=== PATIENT | male | born 1990 | race Caucasian/White ===

== ENCOUNTER 2024-01-12 17:57 | Inpatient (IN) | payer BC, MEDICAID ==
[2024-01-12] MEDS ORDERED: OLANZapine 10 MG VIAL IM PRN (20:43)
[2024-01-12] MEDS ORDERED: IBUPROFEN 600 MG TAB PO PRN (20:43)
[2024-01-12] MEDS ORDERED: ACETAMINOPHEN TAB 325 MG TAB PO PRN (20:43)
[2024-01-12] MEDS ORDERED: LORazepam 2 MG/ML INJ IM PRN (20:47)
[2024-01-12] MEDS: LORazepam 1 MG TAB PO PRN (22:50)
[2024-01-13] MEDS: NICOTINE 14MG/24HR PATCH TRANSDERM SCH (08:09)
[2024-01-13 09:37] LABS: Chol/HDL Ratio 3.32 Ratio; LDL Cholesterol,Calculated 75.2 mg/dL (0.0-131.0); VLDL Calculation 11.42 mg/dL (5.00-40.00)
--- NOTE | 2024-01-13 11:45 | P.HP ---
Psychiatric H&P - . H&P Date: 01/13/24 History & Physical: Allergies Allergy/AdvReac Type Severity Reaction Status Date / Time cephalexin monohydrate Allergy Unknown Verified 01/13/24 06:25 [From Keflex] Vital Signs Temp 97.6 F 01/13/24 06:11 Pulse 99 01/13/24 06:11 Resp 20 01/13/24 06:11 BP 117/79 01/13/24 06:11 Pulse Ox 100 01/13/24 06:11 FiO2 Intake & Output 01/12/24 01/13/24 01/13/24 18:59 06:59 18:59 Weight 76 kg Laboratory Last Values Estimated Ave Glu mg/dL 108 mg/dL 01/13/24 05:50 Hemoglobin A1c 5.4 % (<=6.0) 01/13/24 05:50 Triglycerides 57.10 mg/dL (0.00-149.00) 01/13/24 05:50 Cholesterol 124.00 mg/dL (0.00-200.00) 01/13/24 05:50 LDL Cholesterol, Calc 75.2 mg/dL (0.0-131.0) 01/13/24 05:50 VLDL Cholesterol, Calc 11.42 mg/dL (5.00-40.00) 01/13/24 05:50 HDL Cholesterol 37.40 mg/dL (40.00-60.00) L 01/13/24 05:50 Cholesterol/HDL Ratio 3.32 Ratio 01/13/24 05:50 01/13/24 11:38 This is a psychiatric assessment on Chema Vang who is a 33-year-old male and who states that he currently works as a behavioral health worker Patient reports that he was brought to the hospital because he was yelling at one of his patients who was not behaving right Patient also was writing voraciously and states that his writing about or 4 fathers whom he states that related to [place] He states that he used to roam around the world and was involved in several battles and that he is part of the group of the fore fathers When asked about any history of any mental illness patient denies any such problems He states his never been treated for any mental disorder Patient also did not seem to be surprised when asked about any history of bipolar disorder in the family When asked about taking any medications patient wanted to know all about the side effects and monitoring of the mechanism of action etc. and continued to ask multiple questions and concerns about medications Patient was reassured that he does not have to take them if he does not want to but that this is something we can offer to him for his condition Patient seemed to be relieved and went back to riding his so-called novel Patient continued to offer if I wanted to read his novel He states that he currently lives alone He denies any alcohol or substance use He denies any previous psychiatric hospitalizations or treatments Past history personal social history Patient is difficult to redirect and at this time continues to ramble about his normal and about [place]enstein He is unable to be distracted from his current preoccupation and will attempt to get further information when patient is able to participate more adequately or any collateral information is available from other sources Mental status examination: OBJECTIVE: speech was appropriate -The conversation is disorganized and controlled by the patient with the going in different directions -Patient is very preoccupied with his story writing and about Frankenstein patient remains in denial about his illness and the need for treatment -Fund of general knowledge is probably average. -pts MOOD IS blunted -pts judgement and insight are impaired patient continues to rationalize and intellectualize Mental Status Exam Behavior: cooperative, no signs of agitation or aggression Speech: fluent, clear, loud volume hyperverbal Perception: cannot be clearly determine if patient is experiencing any auditory or visual hallucinations Cognition: alert, oriented to place, oriented to person, memory impaired , poor concentrating ability, poor attention span Intelligence: average Memory: remote, recent impaired Mood: Blunted Insight: poor Judgment: poor Thought Processes: disorganized Thought Content: projective rationalizing intellectualizing delusional and projective Diagnostic impression: Psychotic disorder acute Rule out bipolar disorder manic type Suicide risk assessment: 1 emotional and physical pain: low 2 withdrawal/inability to talk about feelings/lack of participation: low 3 current stress/losses/difficult life situation: low 4 hopelessness/inability to think of the future that could be bright: low 5 history of self harm, especially in the hospital/healthcare facilities: low 6 access to firearms: denied 7 current depressive hypomanic or manic episodes: Acute psychosis 8 current thoughts of suicide, intent or plan: low protective factors: estimated suicide risk : low "This dictation was prepared using [employer] voice recognition software. As a result, errors may occur. When identified, these errors have been corrected. While every attempt is made to correct errors during dictation, errors may still exist." I have spent more than 35 minutes with patient doing preparation for encounter, history, physical exam, interpretation of results, reviewing images myself, and coordination of care. Please see assessment and plan above regarding details. Admission recommendations: The patient has been hospitalized on the unit for further evaluation and treatment Therapy will be focused on providing supportive care and improving his coping abilities with a multimodal treatment Patient will also participate on the ghotra activities Individual milieu group OT RT PT and pharmacotherapy director of consulting services on board for appropriate follow-up and placement recommendations if needed The patient is unable to make a decision at this time regarding taking any medications Approximate length of stay would be 7 to 10 days Patient has denied any substance use problems about may be referred for substance use program including psychosocial support system like AA and NA for alcohol and substance use disorders if there is any problems related to substance use Shaq Parada MD
[2024-01-13] MEDS: MAG HYDROX/AL HYDROX/SIMETH 355 ML BOTTLE PO PRN (17:25)
[2024-01-13] MEDS: PANTOPRAZOLE 40 MG TABLET PO SCH (17:52)
[2024-01-14] MEDS: MELATONIN 5 MG TABLET PO PRN (01:25)
[2024-01-14] MEDS: OLANZapine 10 MG TAB PO PRN (01:56)
--- NOTE | 2024-01-14 08:41 | P.PN ---
Subjective 01/14/24 9:38 Subjective data: The patient was seen chart was reviewed and case discussed with nursing staff Patient was laying in bed was but was easily aroused He talked about wanting to show some of his writings We discussed that it would be helpful for him to go on a medication patient however states that the medication he took last night works the best and wanted to know more about it We discussed a trial of antipsychotic or a mood stabilizer patient however remains in denial and remains preoccupied Patient was advised to get some thought regarding med trial Mental status examination: OBJECTIVE: speech was appropriate -The conversation is disorganized -Patient is very preoccupied with his story writing and about [place]enstein and wanted to share his notes patient remains in denial about his illness and the need for treatment -Fund of general knowledge is probably average. -pts MOOD IS blunted -pts judgement and insight are impaired patient continues to rationalize and intellectualize Mental Status Exam Behavior: cooperative, no signs of agitation or aggression Speech: fluent, clear, loud volume hyperverbal Perception: cannot be clearly determine if patient is experiencing any auditory or visual hallucinations Cognition: alert, oriented to place, oriented to person, memory impaired , poor concentrating ability, poor attention span Intelligence: average Memory: remote, recent impaired Mood: Blunted Insight: poor Judgment: poor Thought Processes: disorganized Thought Content: projective rationalizing intellectualizing delusional and projective Diagnostic impression: Psychotic disorder acute Rule out bipolar disorder manic type Suicide risk assessment: 1 emotional and physical pain: low 2 withdrawal/inability to talk about feelings/lack of participation: low 3 current stress/losses/difficult life situation: low 4 hopelessness/inability to think of the future that could be bright: low 5 history of self harm, especially in the hospital/healthcare facilities: low 6 access to firearms: denied 7 current depressive hypomanic or manic episodes: Acute psychosis 8 current thoughts of suicide, intent or plan: low protective factors: estimated suicide risk : low "This dictation was prepared using [employer] voice recognition software. As a result, errors may occur. When identified, these errors have been corrected. While every attempt is made to correct errors during dictation, errors may still exist." I have spent more than 25 minutes with patient doing preparation for encounter, history, physical exam, interpretation of results, reviewing images myself, and coordination of care. Please see assessment and plan above regarding details. Admission recommendations: The patient has been hospitalized on the unit for further evaluation and treatment Therapy will be focused on providing supportive care and improving his coping abilities with a multimodal treatment Patient will also participate on the ghotra activities Individual milieu group OT RT PT and pharmacotherapy payroll services analyst on board for appropriate follow-up and placement recommendations if needed The patient is unable to make a decision at this time regarding taking any medications Approximate length of stay would be 7 to 10 days Patient has denied any substance use problems about may be referred for substance use program including psychosocial support system like AA and NA for alcohol and substance use disorders if there is any problems related to substance use Shaq Parada MD Objective - Vital Signs Vital signs: Vital Signs Temp 97.6 F 01/13/24 06:11 Pulse 99 01/13/24 06:11 Resp 20 01/13/24 06:11 BP 117/79 01/13/24 06:11 Pulse Ox 100 01/13/24 06:11 FiO2 - Labs Labs: Abnormal Lab Results - Last 24 Hours (Table) 01/13/24 Range/Units 05:50 HDL Cholesterol 37.40 L (40.00-60.00) mg/dL
[2024-01-14] MEDS: MAGNESIUM HYDROXIDE 2,400 MG/30 ML CUP PO PRN (11:22)
--- NOTE | 2024-01-15 00:27 | P.CONS ---
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 The patient was seen in our mental health unit. He denied any physical complaints at the time of interview. He reports recreational marijuana use and vaping. Denies any additional illicit substance use. Denied experiencing chest discomfort, shortness of breath, fever, chills, cough, nausea, vomiting, abdominal pain, diarrhea. Review of systems: Pertinent positives and negatives as discussed in HPI, a complete review of systems was performed and all other systems are negative. Physical examination: General: non toxic, no distress, appears at stated age, normal weight Derm: no unusual rashes/lesions, no unusual ecchymoses, warm, dry Head: atraumatic, normocephalic, symmetric Eyes: EOMI, no lid lag, anicteric sclera ENT: Nose and ears atraumatic, no thrush, no pharyngeal erythema Neck: trachea midline, supple Mouth: no lip lesion, mucus membranes moist Cardiovascular: S1S2 reg, no murmur, no edema Lungs: CTA bilateral, no rhonchi, no rales , no accessory muscle use Abdominal: soft, nontender to palpation, no guarding Ext: no gross muscle atrophy, no contractures, Neuro: No gross focal neuro deficits noted Psych: Alert, oriented, appropriate affect Assessment: Marijuana abuse Psychosis Plan: Advised on the importance of cessation Defer management of psychosis to primary psychiatry service for Thank you for allowing us to participate in the care of this patient. We will follow peripherally. Do not hesitate to contact us with questions. Someone can be reached from the [facility] [place] hospitalist group at all hours of the day at [phone]. Past Medical History Past Medical History: No Reported History Additional Past Medical History / Comment(s): numerous attempts with rehabs History of Any Multi-Drug Resistant Organisms: None Reported Past Surgical History: No Surgical Hx Reported Past Psychological History: Unable to Obtain Additional Psychological History / Comment(s): hx of three inpatient psycyhiatric admissions. Smoking Status: Former smoker Past Alcohol Use History: Daily Past Drug Use History: Marijuana Medications and Allergies Home Medications Medication Instructions Recorded Confirmed Type No Known Home Medications 01/13/24 01/13/24 History Allergies Allergy/AdvReac Type Severity Reaction Status Date / Time cephalexin monohydrate Allergy Unknown Verified 01/13/24 06:25 [From Keflex] Physical Exam Vitals: Intake and Output 01/14/24 01/14/24 01/15/24 14:59 22:59 06:59 Other: Weight 75.7 kg
--- NOTE | 2024-01-15 10:14 | P.PN ---
Progress Note - Text Progress Note Date: 01/15/24 Follow-up Mediation Review Chief Complaint: I was raising my voice. Subjective: The patient stated that he might be schizophrenic. 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 He stated that he was petitioned by the [facility] because he was raising his voice on a patient. The patient noted that he was engaging with mind, heart and soul but getting weird thoughts. He used the same process with the patient but did not do a good job. The patient is upset that he could not petition himself but was petitioned by the hospital against his will. The patient noted that he is ro to be here and did not get fired. The patient has been attending the groups. The participation is good. The interaction with staff and peers is good. The patient is compliant with treatment recommendations. Leading questions: The patient denied Depression and Anxiety. Denied SI or HI. Denied symptoms consistent with psychosis Sleep and Appetite: Sleep is impaired. Appetite is fine. Change in family/ living/job/financial/daily routine: No change. Change in medical condition: No change. Change in medications: No change. Side effects from Medications: None. Allergies: No change. Objective- MSE: Alert and attentive. Orientation times three. Dressed and Groomed: Appropriately. Pleasant and cooperative. Psychomotor Activity: Normal. Speech: Normal in tone, quality, hyperverbal Mood: Fine. Affect: Appropriate SI or HI: None. Perceptual disturbance: None. Thought Content: Mild grandiose and paranoid thinking noted. No other delusional thinking noted. Thought Process: Tangential, loose association, flight of ideas. Cognition: Intact Judgment and Insight: Poor. AIMS: Normal. Labs: No new labs. Diagnosis: Plan and Recommendations: Continue current Medications. Add Zyprexa 5 mg po Qhs. Monitor MS and side effects of medications and adjust medications accordingly. Provide supportive psychotherapy. The patient provided psychoeducation and advised The patient provided Substance abuse counseling. Smoke cessation therapy. The patient to attend ghotra activities. CBC with Diff, CMP, TSH. Medication Consent with explanation of risk/benefits and side effects: Explained and obtained.
[2024-01-15 10:54] LABS: ALT 17 U/L (4-49); AST 22 U/L (17-59); African American GFR (CKD) >90 (>60 ml/min/1.73 sqM); Albumin 4.5 g/dL (3.5-5.0); Alkaline Phosphatase 50 U/L (38-126); Anion Gap 9 mmol/L; Basophils % (A) 1 %; Blood Urea Nitrogen 14 mg/dL (9-20); Calcium 9.8 mg/dL (8.4-10.2); Carbon Dioxide 27 mmol/L (22-30); Chloride 103 mmol/L (98-107); Eosinophils # (A) 0.1 k/uL (0-0.7); Eosinophils % (A) 2 %; Glucose 87 mg/dL (74-99); HCT 42.8 % (39.0-53.0); HGB 14.6 gm/dL (13.0-17.5); Lymphocytes # (A) 0.9 k/uL (1.0-4.8); Lymphocytes % (A) 18 %; MCH 31.8 pg (25.0-35.0); MCHC 34.2 g/dL (31.0-37.0); MCV 93.1 fL (80.0-100.0); Mean Platelet Volume 7.4; Monocytes # (A) 0.4 k/uL (0-1.0); Monocytes % (A) 7 %; Neutrophils # (A) 3.5 k/uL (1.3-7.7); Neutrophils % (A) 69 %; Non-African American GFR(CKD) 88 (>60 ml/min/1.73 sqM); Platelet Count 305 k/uL (150-450); Potassium 4.5 mmol/L (3.5-5.1); RBC 4.59 m/uL (4.30-5.90); RDW 12.2 % (11.5-15.5); Sodium 139 mmol/L (137-145); Total Bilirubin 0.5 mg/dL (0.2-1.3); Total Protein 7.1 g/dL (6.3-8.2)
[2024-01-15] MEDS: OLANZapine 5 MG TAB PO SCH (20:26)
[2024-01-16 07:02] VITALS: TEMP 97.9
--- NOTE | 2024-01-16 14:16 | P.PN ---
Progress Note - Text Progress Note Date: 01/16/24 Follow-up Mediation Review Chief Complaint: I am taking my medications. Subjective: The patient stated that he is taking his prn medications. He only wants to take medications as needed. The patient was explained he must take some medications on a regular basis. He wants to take bedtime dose of Zyprexa as prn. The patient was explained this is his medication for psychosis and a has to be taken on a regular dose in the hospital and outside the hospital as an out-pt to prevent reoccurrence of his illness. The patient agreed. He was explained the dose needs to be increased for adequate control of his psychosis. The patient understood and agreed. Zyprexa to be increased to 10 mg po hs. The patient reported no side effects. He has been compliant with medications. The patient has been attending the groups. The participation is good. The interaction with staff and peers is good. The patient is compliant with treatment recommendations. Leading questions: The patient denied Depression and Anxiety. Denied SI or HI. Denied symptoms consistent with psychosis Sleep and Appetite: Sleep is impaired. Appetite is fine. Change in family/ living/job/financial/daily routine: No change. Change in medical condition: No change. Change in medications: No change. Side effects from Medications: None. Allergies: No change. Objective- MSE: Alert and attentive. Orientation times three. Dressed and Groomed: Appropriately. Pleasant and cooperative. Psychomotor Activity: Normal. Speech: Normal in tone, quality, hyperverbal Mood: Fine. Affect: Appropriate SI or HI: None. Perceptual disturbance: None. Thought Content: Mild grandiose and paranoid thinking noted. No other delusional thinking noted. Thought Process: Tangential, loose association, flight of ideas. Cognition: Intact Judgment and Insight: Poor. AIMS: Normal. Labs: No new labs. Diagnosis: No change. Plan and Recommendations: Continue current Medications. Add Zyprexa 5 mg po Qhs. Monitor MS and side effects of medications and adjust medications accordingly. Provide supportive psychotherapy. The patient provided psychoeducation and advised The patient provided Substance abuse counseling. Smoke cessation therapy. The patient to attend ghotra activities. Medication Consent with explanation of risk/benefits and side effects: Explained and obtained.
[2024-01-16] MEDS: OLANZapine 10 MG TAB PO SCH (20:10)
--- NOTE | 2024-01-17 10:43 | P.PN ---
Progress Note - Text Progress Note Date: 01/17/24 Follow-up Mediation Review Chief Complaint: I am feeling better. Subjective: The patient noted that Zyprexa is helping him. He is able to rest and sleep better. He still has racing thoughts and anxiety. He also gets anxious and tense when he sees nice looking women. It discomforts him because he is and have kids. He intellectualization extensively, and talks in metaphoric terms. Zyprexa increased 5 mg mg daily. The patient reported no side effects. He has been compliant with medications. The patient has been attending the groups. The participation is good. The interaction with staff and peers is good. The patient is compliant with treatment recommendations. Leading questions: The patient denied Depression and Anxiety. Denied SI or HI. Denied symptoms consistent with psychosis Sleep and Appetite: Sleep is impaired. Appetite is fine. Change in family/ living/job/financial/daily routine: No change. Change in medical condition: No change. Change in medications: No change. Side effects from Medications: None. Allergies: No change. Objective- MSE: Alert and attentive. Orientation times three. Dressed and Groomed: Appropriately. Pleasant and cooperative. Psychomotor Activity: Normal. Speech: Normal in tone, quality, hyperverbal and over productive, rapid at times. Mood: Fine. Affect: Appropriate SI or HI: None. Perceptual disturbance: None. Thought Content: Mild grandiose and paranoid thinking noted. No other delusional thinking noted. Thought Process: Mild loose associations, flight of ideas. Cognition: Intact Judgment and Insight: Poor. AIMS: Normal. Labs: No new labs. Diagnosis: No change. Plan and Recommendations: Continue current Medications. Add Zyprexa 5 mg po Qhs. Monitor MS and side effects of medications and adjust medications accordingly. Provide supportive psychotherapy. The patient provided psychoeducation and advised The patient provided Substance abuse counseling. Smoke cessation therapy. The patient to attend ghotra activities. Medication Consent with explanation of risk/benefits and side effects: Explained and obtained.
[2024-01-18] MEDS: hydrOXYzine pamoate 25 MG CAP PO PRN (00:37)
[2024-01-18] MEDS: OLANZapine 5 MG TAB PO SCH (08:31)
--- NOTE | 2024-01-18 13:32 | P.PN ---
Progress Note - Text Progress Note Date: 01/18/24 Follow-up Mediation Review Chief Complaint: I am feeling much better. Subjective: The patient noted that he is more focused and able think clearly. He feels that he has improved significantly since the time he was admitted. He can rest and sleep better. He feels the medication is helping him. His thinks that the patient is back to his baseline. She saw him yesterday. She noticed him to be communicating well. She feels comfortable with his discharge. The patient reported no side effects. He has been compliant with medications. The patient has been attending the groups. The participation is good. The interaction with staff and peers is good. The patient is compliant with treatment recommendations. Leading questions: The patient denied Depression and Anxiety. Denied SI or HI. Denied symptoms consistent with psychosis Sleep and Appetite: Sleep is impaired. Appetite is fine. Change in family/ living/job/financial/daily routine: No change. Change in medical condition: No change. Change in medications: No change. Side effects from Medications: None. Allergies: No change. Objective- MSE: Alert and attentive. Orientation times three. Dressed and Groomed: Appropriately. Pleasant and cooperative. Psychomotor Activity: Normal. Speech: Normal in tone, quality, and quatity. Mood: Fine. Affect: Appropriate SI or HI: None. Perceptual disturbance: None. Thought Content: No overt delusions noted. No other delusional thinking noted. Thought Process: Normal. Cognition: Intact Judgment and Insight: Poor. AIMS: Normal. Labs: No new labs. Diagnosis: No change. Plan and Recommendations: Continue current Medications. Monitor MS and side effects of medications and adjust medications accordingly. Provide supportive psychotherapy. The patient provided psychoeducation and advised The patient provided Substance abuse counseling. Smoke cessation therapy. The patient to attend ghotra activities. Medication Consent with explanation of risk/benefits and side effects: Explained and obtained.
[2024-01-19 02:32] VITALS: BP 127/82; PULSE 87; RESP 18
--- NOTE | 2024-01-19 12:30 | P.DS ---
Providers Date of admission: 01/12/24 22:15 Expected date of discharge: 01/19/24 Attending physician: Martir Hale MD Consults: 01/12/24 20:43 Consult Physician Routine Consulting Provider: Agustin Morales Consult Reason/Comments: H&P for mental health admission Do you want consulting provider notified?: Yes Primary care physician: Stated None - Discharge Diagnosis(es) (1) Unspecified psychosis Current Visit: Yes Status: Acute Priority: High (2) Marijuana abuse Current Visit: Yes Status: Acute Priority: Medium Hospital Course: Discharge Summary HPI: This is a psychiatric assessment on Chema Vang who is a 33-year-old male and who states that he currently works as a behavioral health worker Patient reports that he was brought to the hospital because he was yelling at one of his patients who was not behaving right Patient also was writing voraciously and states that his writing about or 4 fathers whom he states that related to [place] He states that he used to roam around the world and was involved in several battles and that he is part of the group of the fore fathers When asked about any history of any mental illness patient denies any such problems He states his never been treated for any mental disorder Patient also did not seem to be surprised when asked about any history of bipolar disorder in the family When asked about taking any medications patient wanted to know all about the side effects and monitoring of the mechanism of action etc. and continued to ask multiple questions and concerns about medications Patient was reassured that he does not have to take them if he does not want to but that this is something we can offer to him for his condition Patient seemed to be relieved and went back to riding his so-called novel Patient continued to offer if I wanted to read his novel He states that he currently lives alone Drug and Alcohol history: Admitted to using Alcohol, Mushrooms, Acid and Marijuana. He used Alcohol and Marijuana on a regular basis. He is sober for 17 months. Past Psychiatric history: The patient noted that he was hospitalized 3 times in the past for psychosis. His one admission 2016 was to this hospital. He was diagnosed with psychosis, unspecified. He has been treated with Risperdal and Seroquel in the past. Past Medical History: None, as per patient. Past history personal social history Patient is difficult to redirect and currently continues to ramble about his normal and about [place] He is unable to be distracted from his current preoccupation and will attempt to get further information when patient is able to participate more adequately or any collateral information is available from other sources Hospital Course: After admission, the patient was involved in pharmacotherapy, ghotra milieu, and individual psychodynamic psychotherapy. The patient was started on Zyprexa. The dose was titrated to obtain the desire effects. The patient tolerated medications well without any side effects. The patient was also involved in ghotra activities. The patient attended the groups and participated well. The patient interacted with peers and staff well. The patient slowly started showing improvement. The hospital course was uneventful. The patient symptoms of depression, suicidal and homicidal ideations abated. The psychosis improved. The patient was stable to be discharged to out-patient care. The patient did not have any guns or weapons in possession at home. MSE: Behavior: cooperative, no signs of agitation or aggression Speech: fluent, clear, loud volume hyperverbal Perception: cannot be clearly determine if patient is experiencing any auditory or visual hallucinations Cognition: alert, oriented to place, oriented to person, memory impaired ,poor concentrating ability, poor attention span Intelligence: average Memory: remote, recent impaired Mood: Blunted Insight: poor Judgment: poor Thought Processes: disorganized Thought Content: projective rationalizing intellectualizing delusional and projective Diagnosis: Psychosis, unspecified. Rule out bipolar disorder manic type Plan: The patient to be discharged today. The patient has attained good improvement since admission. He is stable to be followed as an outpatient. The patient is not suicidal or Homicidal. He does not pose any harm to self or others. The patient remains at a greater risk of self-harm or harm to others than general population on a chronic basis due to psychiatric illness and substance abuse. The patient will continue taking following medication post discharge. The importance of medication compliance and maintaining regular appointments at psychiatric out-pt and PCP clinic was explained and encouraged. The patient was also advised to seek alcohol counseling and attend AA/NA meetings. The understood and agreed with the recommendations. bake room worker to arrange for and conduct family meeting to ensure safety upon discharge and answer any questions. The renal social worker to arrange for patients follow-up appointments at [facility] for psychiatric care along with follow-up with PCP. The patient provided psychoeducation. Advised to call 911 or go to nearest ED or call this hospital in case of acute worsening of symptomatology, severe side effects or having suicidal, homicidal thoughts and feeling unsafe at home. Patient Condition at Discharge: Stable Plan - Discharge Summary Discharge Rx Participant: Yes New Discharge Prescriptions: New Nicotine 14Mg/24Hr Patch [Habitrol] 1 patch TRANSDERM DAILY 15 Days #15 patch hydrOXYzine pamoate [Vistaril] 25 mg PO HS PRN 15 Days #10 cap PRN Reason: Insomnia OLANZapine [ZyPREXA] 5 mg PO DAILY 15 Days #15 tab OLANZapine [ZyPREXA] 10 mg PO HS 15 Days #15 tab Discharge Medication List Nicotine 14Mg/24Hr Patch [Habitrol] 1 patch TRANSDERM DAILY 15 Days #15 patch 01/19/24 [Rx] OLANZapine [ZyPREXA] 5 mg PO DAILY 15 Days #15 tab 01/19/24 [Rx] OLANZapine [ZyPREXA] 10 mg PO HS 15 Days #15 tab 01/19/24 [Rx] hydrOXYzine pamoate [Vistaril] 25 mg PO HS PRN 15 Days #10 cap 01/19/24 [Rx] Follow up [facility](s[facility]Ref[facility] [Other] - 01/23/24 11:00 am (01/22 @ 11:00) Patient Instructions/Handouts: Psychotic Disorder (DC) Activity/Diet/Wound Care/Special Instructions: Avoid the use of street drugs and alcohol. Take all medications as prescribed. When you are in need of refills on your medications, please contact your outpatient medical provider and/or outpatient psychiatrist. Please go to your scheduled outpatient appointments for aftercare treatment. If symptoms return or become worse, call the crisis line at or and/or visit the nearest emergency room for assistance. National Suicide and Crisis Lifeline - call or text 618. Discharge Disposition: HOME SELF-CARE
== END 2024-01-19 13:35 | disposition home or self-care (01) | DRG 885 ==
LOC: 3MHU 22:15 → UNDOADMIN 22:15
PROVIDERS: ADMIT Psychiatry & Neurology Psychiatry; ATTEND Psychiatry & Neurology Psychiatry
DX: F29 Unspecified psychosis not due to a substance or known physiological condition (principal); R45.851 Suicidal ideations; F12.10 Cannabis abuse, uncomplicated; F41.9 Anxiety disorder, unspecified; Z87.891 Personal history of nicotine dependence; Z91.52 Personal history of nonsuicidal self-harm; Z88.1 Allergy status to other antibiotic agents; Z71.51 Drug abuse counseling and surveillance of drug abuser
CPT/HCPCS: 80053; 80061; 83036; 84439; 84443; 85025